=== PATIENT | male | born 1975 | race Caucasian/White ===

== ENCOUNTER 2017-09-05 19:25 | Inpatient (IN) | payer MEDICAID, OTHER ==
[~2017-09-05] VITALS: Ht 170.2 cm; Wt 95.6 kg
[2017-09-05 21:45] LABS: Basophils # (auto) 0 uL; Basophils % (auto) 0.6 % (0.0-2.0); Eosinophils # (auto) 0.2 uL; Eosinophils % (auto) 2.7 % (0.0-7.0); Hematocrit 44.9 % (41.0-53.0); Hemoglobin 15.2 g/dL (13.5-17.5); Lymphocytes # (auto) 1.3 uL; Lymphocytes % (auto) 17.6 % (10.0-50.0); Mean Corpuscular Hemoglobin 32.1 pg (28.0-32.0); Mean Corpuscular Hgb Conc. 33.8 g/dL (32.0-36.0); Mean Corpuscular Volume 94.9 fL (80.0-100.0); Monocytes # (auto) 0.7 uL; Monocytes % (auto) 9.4 % (0.0-12.0); Neutrophils % (auto) 69.7 % (37.0-80.0); Nucleated Red Blood Cells % 0.1 %; Platelet Count (auto) 207 10^3/uL (140-450); Red Blood Cells 4.73 10^6/uL (4.5-5.90); Red Cell Distribution Width 13.8 % (11.8-14.3); White Blood Cell 7.1 10^3/uL (4.4-10.8)
[2017-09-05 22:02] LABS: INR 1.11 (0.9-1.15); Prothrombin Time 12.1 sec (9.37-12.3)
[2017-09-05 22:06] LABS: Alanine Aminotransferase 1028 U/L (16-61); Albumin 3.3 g/dL (3.4-5.0); Alkaline Phosphatase 83 U/L (45-117); Anion Gap 9 (5-15); Aspartate Aminotransferase 208 U/L (15-37); BUN/Creatinine Ratio 11.6; Bilirubin, Total 1.8 mg/dL (0.2-1.0); Blood Urea Nitrogen 16 mg/dL (7-18); Calcium 8.1 mg/dL (8.5-10.1); Carbon Dioxide 28 mmol/L (21-32); Chloride 100 mmol/L (98-107); GFR African American 72 mL/min; GFR Non-African American 60 mL/min; Glucose 98 mg/dL (74-106); Magnesium 2.8 mg/dL (1.6-2.6); Potassium 3.8 mmol/L (3.5-5.1); Sodium 137 mmol/L (136-145); Total Protein 6.8 g/dL (6.4-8.2)
[2017-09-05 22:45] LABS: Urine WBC None Seen /hpf (0 - 3)
[2017-09-05] MEDS ORDERED: IOHEXOL 350 MG/ML 100ML IJ ONE (23:13)
[2017-09-05 23:15] LABS: Urine Bacteria NONE SEEN /hpf (None Seen); Urine Blood Negative /uL (Negative); Urine Hyaline Cast MANY /lpf (0 - 2); Urine Mucus FEW (None Seen); Urine Specific Gravity 1.011 (1.001-1.035)
[2017-09-06] MEDS ORDERED: ONDANSETRON HCL 4 MG/2 ML VIAL IV PRN (01:15)
[2017-09-06] MEDS ORDERED: FUROSEMIDE 40 MG/4 ML VIAL IV ONE ×2 (01:15→18:30)
[2017-09-06] MEDS ORDERED: METO25TA62 PO (01:25)
[2017-09-06] MEDS ORDERED: MECL12.554 PO (01:25)
[2017-09-06] MEDS ORDERED: APIX5TAB PO (01:25)
[2017-09-06] MEDS ORDERED: FURO40TA PO (01:25)
[2017-09-06] MEDS ORDERED: ONDA-101 SL (01:25)
[2017-09-06] MEDS ORDERED: AMIO200T33 PO (01:25)
[2017-09-06] MEDS ORDERED: LACTULOSE 20Gm/30ML SOLN PO PRN ×2 (03:30→17:00)
[2017-09-06] MEDS ORDERED: MORPHINE SULFATE 10 MG/ML INJ 1ML SDV IV PRN (03:45)
[2017-09-06 03:52] LABS: Amylase 29 U/L (25-115); Lipase 376 U/L (73-393)
[2017-09-06 04:17] LABS: Basophils # (auto) 0 uL; Basophils % (auto) 0.6 % (0.0-2.0); Eosinophils # (auto) 0.2 uL; Eosinophils % (auto) 3.5 % (0.0-7.0); Hematocrit 44.6 % (41.0-53.0); Lymphocytes # (auto) 1.4 uL; Lymphocytes % (auto) 22.3 % (10.0-50.0); Mean Corpuscular Hemoglobin 31.8 pg (28.0-32.0); Mean Corpuscular Hgb Conc. 33.5 g/dL (32.0-36.0); Mean Corpuscular Volume 94.9 fL (80.0-100.0); Monocytes # (auto) 0.6 uL; Monocytes % (auto) 9.6 % (0.0-12.0); Neutrophils # (auto) 4.1 uL; Nucleated Red Blood Cells % 0.1 %; Platelet Count (auto) 188 10^3/uL (140-450); Red Blood Cells 4.69 10^6/uL (4.5-5.90); White Blood Cell 6.4 10^3/uL (4.4-10.8)
[2017-09-06 04:49] LABS: BUN/Creatinine Ratio 10.9; Calcium 8.2 mg/dL (8.5-10.1); Potassium 3.7 mmol/L (3.5-5.1)
[2017-09-06] MEDS ORDERED: FUROSEMIDE 40 MG/4 ML VIAL IV SCH (06:00)
[2017-09-06] MEDS ORDERED: SODIUM CHLORIDE 0.9% 500 ML IV ONE (08:19)
[2017-09-06] MEDS: AMIODARONE HCL 200 MG TAB PO SCH (10:30)
[2017-09-06] MEDS: APIXABAN 5 MG TAB PO SCH ×2 (10:30→22:00)
[2017-09-06] MEDS ORDERED: SODIUM CHLORIDE 0.9% 1,000 ML IV SCH (10:45)
[2017-09-06] MEDS ORDERED: POTASSIUM CHL 20 Meq TABLET PO ONE (10:45)
[2017-09-06] MEDS ORDERED: NITROGLYCERIN 0.4 MG SL TAB SL PRN (11:45)
[2017-09-06] MEDS ORDERED: MORPHINE SULF INJ 2 MG/ML SYRINGE 1ML IV PRN (11:45)
[2017-09-06] MEDS ORDERED: SODIUM CHLOR 0.9% PF (SALINE LOCK) 10ML VIAL IV SCH (14:00)
[2017-09-06] MEDS ORDERED: LACTULOSE 20Gm/30ML SOLN PO ONE (17:00)
[2017-09-06] MEDS ORDERED: AMIODARONE HCL 150 MG in D5W 5% 100 ML IV ONE (18:15)
[2017-09-06] MEDS ORDERED: DIGOXIN (250MCG/ML) 2 ML AMPULE IV ONE (18:15)
[2017-09-06] MEDS ORDERED: AMIODARONE HCL 900 MG in DEXTROSE 500 ML IV SCH (18:25)
[2017-09-06] MEDS ORDERED: METOLAZONE 5 MG TAB PO ONE (19:15)
[2017-09-06] MEDS: METOPROLOL TARTRATE 25 MG TAB PO SCH (22:00)
[2017-09-06 23:43] LABS: Free T3 2.94 pg/mL (2.3-4.2); Free T4 (Free Thyroxine) 0.96 ng/dL (0.89-1.76)
[2017-09-07] MEDS ORDERED: AMIODARONE HCL 900 MG in DEXTROSE 500 ML IV SCH (00:25)
[2017-09-07] MEDS: FUROSEMIDE 40 MG/4 ML VIAL IV SCH ×2 (06:00→17:47)
[2017-09-07 07:55] LABS: Basophils # (auto) 0 uL; Basophils % (auto) 0.5 % (0.0-2.0); Eosinophils # (auto) 0.2 uL; Eosinophils % (auto) 3.5 % (0.0-7.0); Hematocrit 42.7 % (41.0-53.0); Lymphocytes # (auto) 1.4 uL; Lymphocytes % (auto) 21.4 % (10.0-50.0); Mean Corpuscular Hemoglobin 31.2 pg (28.0-32.0); Mean Corpuscular Hgb Conc. 32.8 g/dL (32.0-36.0); Mean Corpuscular Volume 95.1 fL (80.0-100.0); Monocytes # (auto) 0.6 uL; Monocytes % (auto) 9.4 % (0.0-12.0); Neutrophils # (auto) 4.1 uL; Neutrophils % (auto) 65.2 % (37.0-80.0); Nucleated Red Blood Cells % 0.1 %; Platelet Count (auto) 171 10^3/uL (140-450); Red Blood Cells 4.49 10^6/uL (4.5-5.90); White Blood Cell 6.3 10^3/uL (4.4-10.8)
[2017-09-07 08:01] LABS: Alanine Aminotransferase 694 U/L (16-61); Albumin 2.9 g/dL (3.4-5.0); Alkaline Phosphatase 69 U/L (45-117); Anion Gap 7 (5-15); Aspartate Aminotransferase 124 U/L (15-37); Blood Urea Nitrogen 10 mg/dL (7-18); Calcium 8.1 mg/dL (8.5-10.1); Carbon Dioxide 29 mmol/L (21-32); Chloride 99 mmol/L (98-107); GFR African American 81 mL/min; GFR Non-African American 67 mL/min; Glucose 99 mg/dL (74-106); Potassium 4.1 mmol/L (3.5-5.1); Sodium 135 mmol/L (136-145)
[2017-09-07] MEDS: METOPROLOL TARTRATE 25 MG TAB PO SCH ×2 (09:34→23:58)
[2017-09-07] MEDS: AMIODARONE HCL 200 MG TAB PO SCH (09:35)
[2017-09-07] MEDS: APIXABAN 5 MG TAB PO SCH ×2 (09:35→23:56)
[2017-09-07 11:25] LABS: Alcohol, Urine < 3.0 mg/dL (0-5); Amphetamine Screen, Urine NEGATIVE (NEGATIVE); Barbiturate Scree,Urine NEGATIVE (NEGATIVE); Benzodiazephine Screen, Urine NEGATIVE (NEGATIVE); Cannabinoid Screen, Urine NEGATIVE (NEGATIVE); Cocaine Screen, Urine NEGATIVE (NEGATIVE); Opiate Scree,Urine NEGATIVE (NEGATIVE); Phencyclidine Screen, Urine NEGATIVE (NEGATIVE)
[2017-09-07 22:00] VITALS: BP 117/71
[2017-09-08 05:00] VITALS: BP 93/64
[2017-09-08] MEDS: FUROSEMIDE 40 MG/4 ML VIAL IV SCH (06:00)
[2017-09-08 07:03] LABS: Basophils # (auto) 0 uL; Basophils % (auto) 0.3 % (0.0-2.0); Eosinophils # (auto) 0.2 uL; Eosinophils % (auto) 2.4 % (0.0-7.0); Hematocrit 42.5 % (41.0-53.0); Lymphocytes % (auto) 14.3 % (10.0-50.0); Mean Corpuscular Hemoglobin 31.3 pg (28.0-32.0); Mean Corpuscular Hgb Conc. 33.1 g/dL (32.0-36.0); Mean Corpuscular Volume 94.7 fL (80.0-100.0); Monocytes # (auto) 0.6 uL; Monocytes % (auto) 8.6 % (0.0-12.0); Neutrophils # (auto) 5.2 uL; Neutrophils % (auto) 74.4 % (37.0-80.0); Nucleated Red Blood Cells % 0.1 %; Platelet Count (auto) 172 10^3/uL (140-450); Red Blood Cells 4.49 10^6/uL (4.5-5.90); Red Cell Distribution Width 13.7 % (11.8-14.3)
[2017-09-08 07:24] LABS: Albumin 2.9 g/dL (3.4-5.0); BUN/Creatinine Ratio 8.4; Bilirubin, Total 1.6 mg/dL (0.2-1.0); Calcium 8.2 mg/dL (8.5-10.1); Potassium 3.9 mmol/L (3.5-5.1); Total Protein 6.1 g/dL (6.4-8.2)
[2017-09-08 08:00] VITALS: BP 90/67
[2017-09-08] MEDS: METOPROLOL TARTRATE 25 MG TAB PO SCH (10:00)
[2017-09-08] MEDS ORDERED: FUROSEMIDE 40 MG/4 ML VIAL IV SCH (10:00)
[2017-09-08] MEDS: APIXABAN 5 MG TAB PO SCH (10:10)
[2017-09-08] MEDS: AMIODARONE HCL 200 MG TAB PO SCH (10:10)
[2017-09-08 11:46] VITALS: BP 90/67
== END 2017-09-08 13:00 | disposition home or self-care (01) | DRG 194 ==
LOC: ER 19:25 → EDBD 19:25 → TELE 19:26 → TELE-EAST 09-07 15:39
PROVIDERS: ADMIT Nurse Practitioner Family; ATTEND Internal Medicine
DX: I13.0 Hypertensive heart and chronic kidney disease with heart failure and stage 1 through stage 4 chronic kidney disease, or unspecified chronic kidney disease (principal); N17.9 Acute kidney failure, unspecified; D68.69 Other thrombophilia; E44.1 Mild protein-calorie malnutrition; I48.92 Unspecified atrial flutter; I50.43 Acute on chronic combined systolic (congestive) and diastolic (congestive) heart failure; I42.9 Cardiomyopathy, unspecified; I48.2 Chronic atrial fibrillation; E03.9 Hypothyroidism, unspecified; K40.20 Bilateral inguinal hernia, without obstruction or gangrene, not specified as recurrent; K59.00 Constipation, unspecified; K76.1 Chronic passive congestion of liver; N18.2 Chronic kidney disease, stage 2 (mild); Z79.01 Long term (current) use of anticoagulants; Z82.49 Family history of ischemic heart disease and other diseases of the circulatory system; Z87.442 Personal history of urinary calculi; Z68.33 Body mass index [BMI] 33.0-33.9, adult
CPT/HCPCS: 36415; 71045; 71275; 74176; 80048; 80053; 80307; 81001; 82140; 82150; 83690; 83735; 83880; 84439; 84443; 84481; 84484; 85025; 85379; 85610; 85730; 87081; 93005; 93306; 93970; 94761; 96374; J2405; J7060

== ENCOUNTER 2017-10-11 00:23 | Inpatient (IN) | payer MEDICAID ==
[~2017-10-11] VITALS: Ht 170.2 cm; Wt 92.5 kg
[~2017-10-11 00:23] MED LIST: AMIO200T33 PO; APIX5TAB PO; FURO40TA PO; MECL12.554 PO; METO25TA62 PO; ONDA-101 SL
[2017-10-11 01:21] LABS: Basophils # (auto) 0.1 uL; Basophils % (auto) 0.9 % (0.0-2.0); Eosinophils # (auto) 0.1 uL; Eosinophils % (auto) 0.9 % (0.0-7.0); Hematocrit 43.8 % (41.0-53.0); Hemoglobin 14.3 g/dL (13.5-17.5); Lymphocytes # (auto) 1.8 uL; Lymphocytes % (auto) 20.9 % (10.0-50.0); Mean Corpuscular Hemoglobin 30.7 pg (28.0-32.0); Mean Corpuscular Hgb Conc. 32.7 g/dL (32.0-36.0); Mean Corpuscular Volume 93.8 fL (80.0-100.0); Monocytes # (auto) 0.5 uL; Monocytes % (auto) 6.3 % (0.0-12.0); Neutrophils # (auto) 6.1 uL; Nucleated Red Blood Cells % 0.1 %; Platelet Count (auto) 164 10^3/uL (140-450); Red Blood Cells 4.67 10^6/uL (4.5-5.90); Red Cell Distribution Width 14.5 % (11.8-14.3); White Blood Cell 8.5 10^3/uL (4.4-10.8)
[2017-10-11 01:34] LABS: INR 1.38 (0.9-1.15); Prothrombin Time 15.1 sec (9.37-12.3)
[2017-10-11 01:38] LABS: Albumin 3.2 g/dL (3.4-5.0); Anion Gap 9 (5-15); BUN/Creatinine Ratio 14.8; Blood Urea Nitrogen 23 mg/dL (7-18); Calcium 8.5 mg/dL (8.5-10.1); Carbon Dioxide 28 mmol/L (21-32); Chloride 98 mmol/L (98-107); GFR African American 63 mL/min; GFR Non-African American 52 mL/min; Glucose 104 mg/dL (74-106); Magnesium 2.1 mg/dL (1.6-2.6); Potassium 3.9 mmol/L (3.5-5.1); Sodium 135 mmol/L (136-145)
[2017-10-11 01:50] LABS: Alanine Aminotransferase 49 U/L (16-61); Alkaline Phosphatase 69 U/L (45-117); Aspartate Aminotransferase 15 U/L (15-37); Total Protein 6.4 g/dL (6.4-8.2)
[2017-10-11] MEDS ORDERED: FUROSEMIDE 40 MG/4 ML VIAL IV ONE (08:15)
[2017-10-11 09:23] LABS: Amphetamine Screen, Urine NEGATIVE (NEGATIVE); Barbiturate Scree,Urine NEGATIVE (NEGATIVE); Benzodiazephine Screen, Urine NEGATIVE (NEGATIVE); Cannabinoid Screen, Urine NEGATIVE (NEGATIVE); Cocaine Screen, Urine NEGATIVE (NEGATIVE); Opiate Scree,Urine NEGATIVE (NEGATIVE); Phencyclidine Screen, Urine NEGATIVE (NEGATIVE)
[2017-10-11 09:28] LABS: Urine Bacteria NONE SEEN /hpf (None Seen); Urine Blood Negative /uL (Negative); Urine Hyaline Cast MOD /lpf (0 - 2); Urine Mucus FEW (None Seen); Urine Specific Gravity 1.028 (1.001-1.035); Urine WBC 2 /hpf (0 - 3)
[2017-10-11] MEDS ORDERED: HYDROcodone-ACET 5/325MG TAB PO PRN (09:45)
[2017-10-11] MEDS ORDERED: MORPHINE SULFATE 4 MG/ML SYR/VIAL IV PRN ×2 (09:45)
[2017-10-11] MEDS ORDERED: DOCUSATE SOD 100 MG CAP PO PRN (09:45)
[2017-10-11] MEDS ORDERED: TEMAZEPAM 15 MG CAP PO PRN (09:45)
[2017-10-11] MEDS ORDERED: ACETAMINOPHEN 325 MG TAB PO PRN (09:45)
[2017-10-11] MEDS ORDERED: NITROGLYCERIN 0.4 MG SL TAB SL PRN (09:45)
[2017-10-11] MEDS ORDERED: ONDANSETRON HCL 4 MG/2 ML VIAL IV PRN (09:45)
[2017-10-11] MEDS: MULTIPLE VITAMIN TAB PO SCH (10:00)
[2017-10-11] MEDS: DIGOXIN 0.125 MG TAB PO SCH (10:03)
[2017-10-11] MEDS: POTASSIUM CHL 10 Meq TABLET PO SCH ×2 (10:03→21:29)
[2017-10-11] MEDS: FAMOTIDINE 20 MG TAB PO SCH ×2 (10:04→21:29)
[2017-10-11] MEDS: SODIUM CHLOR 0.9% PF (SALINE LOCK) 10ML VIAL IV SCH ×2 (10:26→21:29)
[2017-10-11] MEDS: FUROSEMIDE 40 MG TAB PO SCH (18:40)
[2017-10-11] MEDS ORDERED: FLU220IH INH (21:05)
[2017-10-11 22:00] VITALS: BP 92/62
[2017-10-12] MEDS: SODIUM CHLOR 0.9% PF (SALINE LOCK) 10ML VIAL IV SCH ×3 (05:26→22:00)
[2017-10-12] MEDS: FUROSEMIDE 40 MG TAB PO SCH ×2 (05:32→17:59)
[2017-10-12 06:12] VITALS: BP 97/70
[2017-10-12 06:47] LABS: Basophils # (auto) 0.1 uL; Basophils % (auto) 0.7 % (0.0-2.0); Eosinophils # (auto) 0.1 uL; Eosinophils % (auto) 1.1 % (0.0-7.0); Hematocrit 44.6 % (41.0-53.0); Hemoglobin 14.8 g/dL (13.5-17.5); Lymphocytes # (auto) 1.7 uL; Lymphocytes % (auto) 21.8 % (10.0-50.0); Mean Corpuscular Hgb Conc. 33.1 g/dL (32.0-36.0); Mean Corpuscular Volume 93.5 fL (80.0-100.0); Monocytes # (auto) 0.6 uL; Neutrophils # (auto) 5.5 uL; Neutrophils % (auto) 69.4 % (37.0-80.0); Nucleated Red Blood Cells % 0.2 %; Platelet Count (auto) 156 10^3/uL (140-450); Red Blood Cells 4.77 10^6/uL (4.5-5.90); Red Cell Distribution Width 15.1 % (11.8-14.3); White Blood Cell 7.9 10^3/uL (4.4-10.8)
[2017-10-12 07:04] LABS: Albumin 3.1 g/dL (3.4-5.0); BUN/Creatinine Ratio 17.5; Calcium 8.7 mg/dL (8.5-10.1); Potassium 4.5 mmol/L (3.5-5.1)
[2017-10-12 07:07] LABS: Bilirubin, Total 2.9 mg/dL (0.2-1.0); Total Protein 6.3 g/dL (6.4-8.2)
[2017-10-12 08:00] VITALS: BP 95/65
[2017-10-12] MEDS: POTASSIUM CHL 10 Meq TABLET PO SCH ×2 (10:15→21:58)
[2017-10-12] MEDS: DIGOXIN 0.125 MG TAB PO SCH (10:15)
[2017-10-12] MEDS: FAMOTIDINE 20 MG TAB PO SCH (10:15)
[2017-10-12] MEDS: MULTIPLE VITAMIN TAB PO SCH (10:15)
[2017-10-12 13:00] VITALS: BP 127/77
[2017-10-12] MEDS ORDERED: AMIODARONE HCL 200 MG TAB PO ONE (14:15)
[2017-10-12] MEDS ORDERED: LORazepam 2MG/ML-1ML VIAL IV PRN (14:15)
[2017-10-12] MEDS ORDERED: PANTOPRAZOLE 40 MG/10 ML VIAL IV ONE (14:15)
[2017-10-12] MEDS ORDERED: THIAMINE HCL 100 MG/ML 2ML VIAL IV ONE (14:15)
[2017-10-12 17:20] VITALS: BP 99/72
[2017-10-12] MEDS: APIXABAN 5 MG TAB PO SCH (21:58)
[2017-10-12] MEDS: CARVEDILOL 3.125 MG TAB PO SCH (21:59)
[2017-10-12] MEDS ORDERED: APIXABAN 5 MG TAB PO ONE (22:00)
[2017-10-12 22:18] VITALS: BP 107/62
[2017-10-13 05:22] VITALS: BP 109/73
[2017-10-13] MEDS: SODIUM CHLOR 0.9% PF (SALINE LOCK) 10ML VIAL IV SCH ×3 (05:41→22:27)
[2017-10-13] MEDS: FUROSEMIDE 40 MG TAB PO SCH ×2 (05:41→18:58)
[2017-10-13 08:46] VITALS: BP 108/74
[2017-10-13] MEDS: AMIODARONE HCL 200 MG TAB PO SCH (10:00)
[2017-10-13] MEDS: THIAMINE HCL 100 MG/ML 2ML VIAL IV SCH (10:00)
[2017-10-13] MEDS: MULTIPLE VITAMIN TAB PO SCH (10:00)
[2017-10-13] MEDS: APIXABAN 5 MG TAB PO SCH ×2 (10:00→21:39)
[2017-10-13] MEDS: PANTOPRAZOLE 40 MG/10 ML VIAL IV SCH (10:00)
[2017-10-13] MEDS: DIGOXIN 0.125 MG TAB PO SCH (10:00)
[2017-10-13] MEDS: CARVEDILOL 3.125 MG TAB PO SCH ×2 (10:00→21:34)
[2017-10-13] MEDS: POTASSIUM CHL 10 Meq TABLET PO SCH ×2 (10:45→21:38)
[2017-10-13 12:00] VITALS: BP 95/56
[2017-10-13 16:00] VITALS: BP 109/60
[2017-10-13] MEDS ORDERED: MILK OF MAGNESIA 30ML SUSP PO PRN (20:45)
[2017-10-13 21:30] VITALS: BP 90/66
[2017-10-14 05:00] VITALS: BP 115/80
[2017-10-14 05:49] LABS: Calcium 8.7 mg/dL (8.5-10.1)
[2017-10-14 07:27] VITALS: BP 127/71
[2017-10-14 08:00] VITALS: BP 127/71
[2017-10-14] MEDS: THIAMINE HCL 100 MG/ML 2ML VIAL IV SCH (09:26)
[2017-10-14] MEDS: PANTOPRAZOLE 40 MG/10 ML VIAL IV SCH (09:26)
[2017-10-14] MEDS: AMIODARONE HCL 200 MG TAB PO SCH (09:26)
[2017-10-14] MEDS: CARVEDILOL 3.125 MG TAB PO SCH (09:26)
[2017-10-14] MEDS: POTASSIUM CHL 10 Meq TABLET PO SCH (09:27)
[2017-10-14] MEDS: APIXABAN 5 MG TAB PO SCH (09:27)
[2017-10-14] MEDS: DIGOXIN 0.125 MG TAB PO SCH (09:28)
[2017-10-14] MEDS: MULTIPLE VITAMIN TAB PO SCH (09:28)
[2017-10-14 13:37] VITALS: BP 107/93
== END 2017-10-14 14:30 | disposition left against medical advice (07) | DRG 194 ==
LOC: EDBD 00:23 → ER 00:28 → TELE 00:29 → TELE-WESTW 17:43
PROVIDERS: ADMIT Internal Medicine; ATTEND Internal Medicine
DX: I50.43 Acute on chronic combined systolic (congestive) and diastolic (congestive) heart failure (principal); D68.9 Coagulation defect, unspecified; R18.8 Other ascites; E44.0 Moderate protein-calorie malnutrition; D68.69 Other thrombophilia; I48.92 Unspecified atrial flutter; E87.1 Hypo-osmolality and hyponatremia; I42.8 Other cardiomyopathies; I48.91 Unspecified atrial fibrillation; Z53.21 Procedure and treatment not carried out due to patient leaving prior to being seen by health care provider; W19.XXXA Unspecified fall, initial encounter; E66.9 Obesity, unspecified; F41.9 Anxiety disorder, unspecified; E88.09 Other disorders of plasma-protein metabolism, not elsewhere classified; I08.1 Rheumatic disorders of both mitral and tricuspid valves; N18.9 Chronic kidney disease, unspecified; Z82.0 Family history of epilepsy and other diseases of the nervous system; Z82.49 Family history of ischemic heart disease and other diseases of the circulatory system; Z85.028 Personal history of other malignant neoplasm of stomach; Z68.31 Body mass index [BMI] 31.0-31.9, adult; Y93.89 Activity, other specified; Y99.8 Other external cause status; Y92.009 Unspecified place in unspecified non-institutional (private) residence as the place of occurrence of the external cause; Z90.89 Acquired absence of other organs
CPT/HCPCS: 36415; 70450; 71045; 76705; 80048; 80053; 80162; 80307; 81001; 82140; 83735; 83880; 84484; 85025; 85610; 85730; 87081; 93005; 93886; 96374; 96375; C9113; J2405